=== PATIENT | female | born 1975 | race Caucasian/White ===

== ENCOUNTER → 2017-09-10 | Outpatient (CLI) | payer BC | END | disposition home or self-care (01) | LOC: CFH 07:38 | PROVIDERS: ATTEND Family Medicine | DX: Z12.31 Encounter for screening mammogram for malignant neoplasm of breast (principal) | CPT/HCPCS: G0202 ==

== ENCOUNTER 2019-09-18 07:09 | Outpatient (CLI) | payer BC ==
[~2019-09-18 07:09] MED LIST: ACYC-57 PO; ALPR0.5T7 PO; BUPR300T4 PO; ESCI20TA10 PO; OMEP40CA6 PO
== END 2019-09-18 23:59 | disposition home or self-care (01) ==
LOC: CFH 07:09
PROVIDERS: ATTEND Obstetrics & Gynecology
DX: Z12.31 Encounter for screening mammogram for malignant neoplasm of breast (principal)
CPT/HCPCS: 77067